=== PATIENT | male | born 1930 | race Caucasian/White ===

== ENCOUNTER 2017-09-15 04:49 | Emergency (ER) | payer MEDICARE, BC ==
--- NOTE | 2017-09-15 06:48 | RADIOLOGY REPORT (SQ) ---
EXAM DESCRIPTION: FOREARM LEFT CLINICAL HISTORY: fall COMPARISON: None. FINDINGS: 3 views of the left forearm. Injury the soft tissues overlying the elbow. Cortical disruption involving the head of the radius. IMPRESSION: 1. Likely nondisplaced fracture involving the head of the radius. Follow up radiographs in one week may be helpful to confirm fracture.
[2017-09-15] MEDS ORDERED: HYDROCODONE/ACETAMINOPHEN 5-325 MG TABLET PO ONE (06:51)
[2017-09-15] MEDS ORDERED: THROMBIN (BOVINE) 5000 UNIT EPITAXIS KIT ONE (07:11)
--- NOTE | 2017-09-15 07:11 | ER Document Report ---
ED General - General Chief Complaint: Arm Injury Stated Complaint: FALL/ARM PAIN Time Seen by Provider: 09/15/17 06:27 Mode of Arrival: Wheelchair Information source: Patient, Relative Cannot obtain history due to: Dementia Notes: 87-year-old male history of dementia presents after mechanical fall with multiple skin tears active bleeding. Patient denies any pain himself. TRAVEL OUTSIDE OF THE [place] IN LAST 30 DAYS: No - HPI Onset: Just prior to arrival Onset/Duration: Sudden Quality of pain: No pain Severity: Mild Pain Level: Denies Associated symptoms: Other Exacerbated by: Denies Relieved by: Denies Similar symptoms previously: No Recently seen / treated by doctor: No - Related Data Allergies/Adverse Reactions: morphine Allergy (Verified 09/15/17 04:54) Past Medical History - Social History Smoking Status: Never Smoker Cigarette use (# per day): No Chew tobacco use (# tins/day): No Smoking Education Provided: No Family History: Reviewed & Not Pertinent Review of Systems - Review of Systems Notes: REVIEW OF SYSTEMS: CONSTITUTIONAL : Denies fever, chills, or sweats. Denies recent illness. EENT: Denies eye, ear, throat, or mouth pain or symptoms. Denies nasal or sinus congestion or discharge. Denies throat, tongue, or mouth swelling or difficulty swallowing. CARDIOVASCULAR: Denies chest pain. Denies palpitations or racing or irregular heart beat. Denies ankle edema. RESPIRATORY: Denies cough, cold, or chest congestion. Denies shortness of breath, difficulty breathing, or wheezing. GASTROINTESTINAL: Denies abdominal pain or distention. Denies nausea, vomiting , or diarrhea. Denies blood in vomitus, stools, or per rectum. Denies black, tarry stools. Denies constipation. GENITOURINARY: Denies difficulty urinating, painful urination, burning, frequency, blood in urine, or discharge. MUSCULOSKELETAL: Denies back or neck pain or stiffness. Denies joint pain or swelling. SKIN: Multiple skin tears HEMATOLOGIC : Denies easy bruising or bleeding. LYMPHATIC: Denies swollen, enlarged glands. NEUROLOGICAL: Denies confusion or altered mental status. Denies passing out or loss of consciousness. Denies dizziness or lightheadedness. Denies headache. Denies weakness or paralysis or loss of use of either side. Denies problems with gait or speech. Denies sensory loss, numbness, or tingling. Denies seizures. PSYCHIATRIC: Denies anxiety or stress. Denies depression, suicidal ideation, or homicidal ideation. ALL OTHER SYSTEMS REVIEWED AND NEGATIVE. Dictation was performed using [employer] voice recognition software PHYSICAL EXAMINATION: GENERAL: Well-appearing, well-nourished and in no acute distress. HEAD: Atraumatic, normocephalic. EYES: Pupils equal round and reactive to light, extraocular movements intact, sclera anicteric, conjunctiva are normal. ENT: Nares patent, oropharynx clear without exudates. Moist mucous membranes. NECK: Normal range of motion, supple without lymphadenopathy LUNGS: Breath sounds clear to auscultation bilaterally and equal. No wheezes rales or rhonchi. HEART: Regular rate and rhythm without murmurs ABDOMEN: Soft, nontender, nondistended abdomen. No guarding, no rebound. No masses appreciated. Musculoskeletal: Normal range of motion, no pitting or edema. No cyanosis. NEUROLOGICAL: Baseline dementia follows commands PSYCH: Normal mood, normal affect. SKIN: Large skin tear left shoulder left elbow left forearm Physical Exam - Vital signs Vitals: Temp Pulse Resp BP Pulse Ox 97.6 F 81 16 172/82 H 100 09/15/17 05:16 09/15/17 05:16 09/15/17 05:16 09/15/17 05:16 09/15/17 05:16 Course - Re-evaluation Re-evalutation: 09/15/17 07:10 Area was evaluated, large skin tears are noted there is some active bleeding from the elbow, quick clot and thrombin have been requested to be placed on the wound 09/15/17 16:08 After medication was applied to the wounds, patient was watched for approximately 3 hours in the emergency department his bleeding had stopped, there is a large clot that is noted on the elbow and I had nursing staff place Jesus wrap around it as well as a splint for possible radial head fracture. Patient will be given orthopedic follow-up he was started on antibiotics for the multiple skin tears. Overall he looks well denies any pain at all but does have a history of dementia and is a poor historian, family or caregivers state they have orthopedic follow-up and will return to [place] for this care. I explained to them if there is any signs of infection or any other concerns that they must return immediately, I did give them very strict care instructions regarding the wound After performing a Medical Screening Examination, I estimate there is LOW risk for OPEN FRACTURE, COMPARTMENT SYNDROME, TENDON RUPTURE, ACUTE NEUROVASCULAR INJURY, or RETAINED FOREIGN BODY, thus I consider the discharge disposition reasonable. Also, there is no evidence or peritonitis, sepsis, or toxicity. I have reevaluated this patient multiple times and no significant life threatening changes are noted. The patient and I have discussed the diagnosis and risks, and we agree with discharging home with close follow-up with the understanding that symptoms and presentations can change. We also discussed returning to the Emergency Department immediately if new or worsening symptoms occur. We have discussed the symptoms which are most concerning (e.g., changing or worsening pain, fever, numbness, weakness, cool or painful digits) that necessitate immediate return. - Vital Signs Vital signs: Temp Pulse Resp BP Pulse Ox 97.7 F 87 20 161/124 H 98 09/15/17 10:26 09/15/17 10:26 09/15/17 10:26 09/15/17 10:26 09/15/17 10:26 - Diagnostic Test Radiology reviewed: Image reviewed, Reports reviewed Procedures - Immobilization Left Elbow Time completed: 08:00 Pre-Proc Neuro Vasc Exam: Normal Immobilizer type: Long arm posterior Performed by: Provider assisted, PCT Post-Proc Neuro Vasc Exam: Normal Alignment checked and good: Yes Discharge - Discharge Clinical Impression: Skin tear Elbow fracture, left Qualifiers: Encounter type: initial encounter Fracture type: closed Qualified Code(s): S42.402A - Unspecified fracture of lower end of left humerus, initial encounter for closed fracture Condition: Stable Disposition: HOME, SELF-CARE Instructions: Skin Tear ([facility]) Additional Instructions: Please check dressing every 24 hours or return immediately if there are any other concerns Follow-up with orthopedic for evaluation of the radial head fracture Prescriptions: Cephalexin Monohydrate [Keflex 500 mg Capsule] 500 mg PO Q6H 10 Days capsule Referrals: RACHAEL WHEELER DO [ACTIVE STAFF] - Follow up tomorrow
[2017-09-15 10:26] VITALS: BP 161/124
== END 2017-09-15 10:26 | disposition home or self-care (01) ==
LOC: ER 04:49
PROC: 2W39X1Z Immobilization of Left Upper Extremity using Splint (ICD-10-PCS; principal; 2017-09-15)
DX: S42.402A Unspecified fracture of lower end of left humerus, initial encounter for closed fracture (principal); F03.90 Unspecified dementia, unspecified severity, without behavioral disturbance, psychotic disturbance, mood disturbance, and anxiety; W19.XXXA Unspecified fall, initial encounter
CPT/HCPCS: 99283; 73090; 29105; A9270